=== PATIENT | female | born 1950 | race Caucasian/White ===

== ENCOUNTER 2017-07-24 08:33 | Emergency (ER) | payer BC ==
--- OUTSIDE RECORDS SUMMARY | 2017-07-24 08:39 | XMS REPORT ---
:1950 External Reference #:[id number] Author Organization [employer] Address [address] [address] Phone [phone] Care Team Providers Name Role Phone Marcela Ascencio MD Primary Care Physician Unavailable Payers Type Date Identification Numbers Payment Provider Subscriber Health Maintenance Policy Number: Medicare Blue Ppo Ciarra Braxton [facility] [place] ([facility]) [id number] Group Number: [id number] [address] [address] PayID: [id number] CAYLA Nagy 69995 Medigap Part B Effective: 10/09/2010 Policy Number: BS Facets Ciarra Braxton [id number] Expires: 07/10/2013 PayID: [id number] [address] [address] CAYLA Nagy [address] Health Maintenance Expires: Policy Number: Medicare Blue Ciarra Braxton [facility] [place] ([facility]) 07/10/2015 [id number] [facility] Group Number: [id number] [address] [address] PayID: [id number] CAYLA Nagy [address]345 Problems Date Description Provider Status Onset: 08/20/2015 Neck pain Lei Balderas M.D. 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 Use consumes 1-2 glasses of wine per day Smoking Patient is a former smoker Daily Caffeine Consumes on average 4 cups of regular coffee per day Exercise Type/Frequency Exercises regularly Allergies, Adverse Reactions, Alerts Date Description Reaction Status Severity Comments 12/10/2013 Sulfa Antibiotics active 08/20/2015 Terazol rash active 06/29/2017 Omeprazole active 06/29/2017 Pneumovax red arm, fever active 06/29/2017 Erythromycin gi upset active Medications Medication Date Status Form Strength Qnty SIG Indications Ordering Provider Naproxen 05/11/ Active Capsules 220mg 2 po qam 1 Other Sodium 2016 po q pm Ordering Provider Alpha-Lipoic / Active Capsules 200mg 2 caps daily Unknown Acid 0000 prn Zoloft /00/ Active Tablets 50mg 1 by mouth Unknown 0000 every day Prometrium /00/ Active Capsules 100mg 1 by mouth Unknown 0000 every day Valtrex /00/ Active Tablets 1gm 1 by mouth Unknown 0000 two times a day Lyrica / Active Capsules 25mg take one Unknown 0000 tablet/capsu le by mouth at bedtime. Wellbutrin 00/ Active Tablets ER 100mg 1 by mouth Unknown SR 0000 12HR every morning for 1 week, then 1 in in the morning, 1 at noon (bid) Denavir / Active Cream 1% apply three Unknown 0000 times daily as needed Vivelle-Dot / Active Patches 0.025mg/24 apply 1 Unknown 0000 Biweek HR patch twice weekly Prometrium 00/00/ Hx 100mg qhs Unknown - 2016 Lyrica /00/ Hx 50mg qd Unknown - 2016 Wellbutrin /00/ Hx 112mg bid Unknown XL - 2016 Zoloft /00/ Hx 50mg 1/2 tab bid Unknown - 2016 Vivelle /00/ Hx 0.375 every Unknown Patch - and Tuesday Valtrex /00/ Hx Tablets 1gm as needed Unknown - 2016 Clonazepam /00/ Hx Tablets 0.5mg prn for Unknown 0000 sleep Multi-Vitami / Hx Tablets 1 tab by Unknown n/Minerals 0000 - mouth every 06/27/ day as 2017 supplement Juvenon / Hx 1 tab prn Unknown 0000 - 2016 Immune / Hx Packet prn Unknown Support - 2016 Clonazepam / Hx Tablets 0.5mg 1 by mouth Unknown 0000 - as needed 07/08/ for sleep 2017 Tizanidine / Hx Capsules 2mg 1 or 2 cap Unknown HCL 0000 - by mouth as 07/08/ needed at 2017 night for spasms Tumersaid / Hx Tablets 1 by mouth Unknown 0000 - twice a week 2016 Ventolin HFA / Hx Aerosol 108(90Base 2 puffs by Unknown 0000 - ) mcg/Act mouth four 07/08/ times a day 2017 as needed Mometasone / Hx Suspension 50mcg/Act Unknown Furoate 0000 - 2016 Prednisone / Hx Tablets 10mg take 4 tabs Unknown 0000 - by mouth 07/08/ daily for 2 2017 days then 3 tabs daily for 2 days then 2 tabs for 2 days then 1 tab for 2 days then d/c Vital Signs Date Vital Result Comment 07/18/2017 Height 64 inches 5'4" Weight 145.00 lb Heart Rate 68 /min BP Systolic 99 mmHg BP Diastolic 66 mmHg Respiratory Rate 16 /min Body Temperature 98.4 F BMI (Body Mass Index) 24.9 kg/m2 07/08/2017 Height 64 inches 5'4" Weight 145.00 lb Heart Rate 65 /min BP Systolic Sitting 104 mmHg BP Diastolic Sitting 66 mmHg Pain Level 3 BMI (Body Mass Index) 24.9 kg/m2 01/17/2017 Height 64 inches 5'4" Weight 145.00 lb Heart Rate 74 /min BP Systolic 90 mmHg BP Diastolic 62 mmHg Respiratory Rate 16 /min Body Temperature 97.6 F BMI (Body Mass Index) 24.9 kg/m2 01/23/2016 Height 64 inches 5'4" Weight 145.00 lb Heart Rate 72 /min Respiratory Rate 16 /min Pain Level 8 BMI (Body Mass Index) 24.9 kg/m2 08/20/2015 Height 64 inches 5'4" Weight 140.00 lb Heart Rate 72 /min BP Systolic Sitting 112 mmHg BP Diastolic Sitting 68 mmHg Respiratory Rate 14 /min BMI (Body Mass Index) 24.0 kg/m2 12/10/2013 Height 64 inches 5'4" Weight 145.00 lb Heart Rate 72 /min BP Systolic 117 mmHg BP Diastolic 80 mmHg BMI (Body Mass Index) 24.9 kg/m2 Results Test Date Test Result H/L Range Note Laboratory test finding 11/19/2016 Cytology Non-Delivery Rep SEE RESULT BELOW 1 Laboratory test finding 11/13/2015 Cytology Non-Delivery Rep SEE RESULT BELOW 2 1 SEE RESULT BELOW Name: CIARRA BRAXTON : [address]: Marcela Ascencio MD Acct: [id number] Unit: [id number] AGE: 66 Location: Re11/19/16 SEX: F Status: REG REF SPEC: [id number] SHYANNE: 11/19/16-[address] [facility] [address]: Jerel Aguilera MD REQ: [id number] RECD: 11/19/16-7812 [facility]: Marcela Ascencio MD _ ORDERED: FNA-IMG GUID BX, CY ADEQ-ADDL P, LEVEL 4, CYTO ADEQ-1ST P FINAL DIAGNOSIS Abdominal wall, left anterior, Ultrasound guided, fine needle aspiration: -- Chronic inflammation, macrophages, degenerated adipose tissue and pigment debris present. -- No evidence of malignancy identified. Comment: Correlation with clinical and imaging findings is recommended. A cell block was prepared in the evaluation of this specimen. Smears and cell block reveal similar findings. 1. ABDOMINAL - US GUIDED LEFT ANTERIOR ABDONIMAL WALL FINE NEEDLE ASPIRATION CLINICAL HISTORY Left anterior abdominal wall mass. GROSS DESCRIPTION Ultrasound guided, fine needle aspiration x 4 passes with 6 Alcohol fixed slide(s), Needle rinse in CytoLyt solution for thin layer non-electric razor mechanic test(cloudy yellow), and needle rinse in formalin for cell block. Signed (signature on file) John Ambrosoi MD 1407 END OF REPORT * ML=Testing performed at Main Lab DEPARTMENT OF PATHOLOGY, [address] [place] [address] John Ambrosio M.D. Director [facility] # [id number] 2 SEE RESULT BELOW Name: CIARRA BRAXTON : [address]: Grant Mccabe MD Acct: [id number] Unit: [id number] AGE: 65 Location: THYROID Re11/13/15 SEX: F Status: REG REF SPEC: [id number] SHYANNE: 11/13/15-[address] [facility] [address]: Jerel Aguilera MD REQ: [id number] RECD: 11/13/15 STATUS: TIFF WEEMS DR: Grant Ascencio MD _ ORDERED: FN ASP DEEP, FNA Imme St Add, FNA IMMEDIATE S FINAL DIAGNOSIS Thyroid, right, Ultrasound guided, fine needle aspiration: Benign thyroid nodule- colloid/hyperplastic ([place] class II). The specimen demonstrates modest watery colloid, a modest amount of benign appearing follicular epithelium arranged in uniform sheets, medium sized follicles and only occasional small groups. No features of papillary carcinoma are seen. In this clinical setting the risk of malignancy is less than 3%. Clinical management of this thyroid nodule should be based on clinical and radiographic features as well as the above. THYROID RIGHT - RIGHT SUPERIOR US GUIDED FINE NEEDLE ASPIRATION CLINICAL HISTORY Right nodule, 1.6x 2.2x 1.4cm IMMEDIATE INTERPRETATION Pass 1-inadequate, pass 2-adequate. CONTINUED ON NEXT PAGE * ML=Testing performed at Main Lab DEPARTMENT OF PATHOLOGY, [address] [place] [address] John Ambrosio M.D. Director [facility] # [id number] RUN DATE: 11/13/15 [facility] LAB LIVE PAGE 2 Patient: CIARRA BRAXTON [id number] (Continued) GROSS DESCRIPTION (Continued) GROSS DESCRIPTION 4- alcohol fixed slide(s) 2 - passes Signed (signature on file) Angelita Verdin MD 11/23 1206 END OF REPORT * ML=Testing performed at Main Lab DEPARTMENT OF PATHOLOGY, [address] [place] [address] John Ambrosio M.D. Director [facility] # [id number] Procedures Date CPT Code Description Status 10/08/2015 53995 Diffusing Capacity Completed 10/08/2015 28513 Plethysmography Determination Lung Volumes & Per Completed Airway Resist 10/08/2015 59313 Pulmonary Function><Bronchodil Completed 12/10/2013 40550 Rad Exam; Foot Comp Completed Encounters Type Date Location Provider CPT E/M Dx Office Visit 01/17/2017 [facility] [place], [address] K43.9 11:15a Of Shawn FACS Office Visit 01/23/2016 [facility] Justin Reeves, 88834 M19.072 9:30a Of Tiesha Perez Office Visit 08/20/2015 [place] Rafael Balderas, 07517 M54.2 11:00a Services Of Shawn Perez M43.02 H93.12 Office Visit 12/10/2013 9:45a [facility] Of Gary Kruger M.D. 71086 727.3 CJoy 733.95 Office Visit 04/12/2011 2:00p [facility] Kruger M.D. 14662 716.96 C.Ethan 716.97 Plan of Care Future Appointment(s):08/31/2017 9:30 am - Ruthann Gordon NP at [facility]08/12/2017 9:30 am - Ruthann Gordon NP at [facility]08/23/2017 9:30 am - ROBBIE Marc at [facility]08/23/2017 9:30 am - Joni Neumann MD, FACS at [facility]09/07/2017 1:00 pm - Cynthia Haro MD at [facility]07/18/2017 - Joni Neumann MD, FACSK43.9 Ventral hernia without obstruction or gangreneRecommendations:Surgical repair.D48.1 Neoplasm of uncertain behavior of connctv/soft tissRecommendations:"Lipoma" to be removed at time of hernia repair.
--- OUTSIDE RECORDS SUMMARY | 2017-07-24 08:39 | XMS REPORT ---
:1950 External Reference #:[id number] Author Organization [employer] Address [address] [address] Phone [phone] Care Team Providers Name Role Phone Marcela Ascencio MD Primary Care Physician Unavailable Payers Type Date Identification Numbers Payment Provider Subscriber Health Maintenance Policy Number: Medicare Blue Ppo Ciarra Braxton [facility] ([facility]) [id number] Group Number: [id number] [address] [address] PayID: [id number] CAYLA Nagy [address] Medigap Part B Effective: 10/09/2010 Policy Number: BS Facets Ciarra Braxton [id number] Expires: 07/10/2013 PayID: [id number] [address] [address] CAYLA Nagy [address] Health Maintenance Expires: Policy Number: Medicare Blue Ciarra Braxton [facility] ([facility]) 07/10/2015 [id number] [facility] Group Number: [id number] [address] [address] PayID: [id number] CAYLA Nagy [address]30[address] Problems Date Description Provider Status Onset: 08/20/2015 [...] Date Description Comments 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 Wellbutrin /00/ Active Tablets ER 100mg 1 by mouth [...] every Unknown Patch - and Tuesday Valtrex 00/00/ Hx Tablets 1gm as needed Unknown - 2016 Clonazepam /00/ Hx Tablets 0.5mg prn for Unknown 0000 sleep Multi-Vitami 00/00/ Hx Tablets 1 tab by Unknown n/Minerals 0000 - mouth every 06/27/ day as 2017 supplement Juvenon / Hx 1 tab prn Unknown - 2016 Immune / Hx Packet prn Unknown Support - 2016 Clonazepam / Hx Tablets 0.5mg 1 by mouth Unknown 0000 - as needed 07/08/ for sleep 2016 Tizanidine / Hx Capsules 2mg 1 or 2 cap Unknown HCL 0000 - by mouth as 07/08/ needed at 2016 night for spasms Tumersaid / Hx Tablets 1 by mouth Unknown 0000 - twice a week 2016 Ventolin HFA / Hx Aerosol 108(90Base 2 puffs by Unknown 0000 - ) mcg/Act mouth four 07/08/ times a day 2017 as needed Mometasone / Hx Suspension 50mcg/Act Unknown Furoate - 2016 Prednisone / Hx Tablets 10mg take 4 tabs Unknown 0000 - by mouth 07/08/ daily for 2 2017 days then 3 tabs daily for 2 days then 2 tabs for 2 days then 1 tab for 2 days then d/c Vital Signs Date Vital Result Comment 07/08/2017 Height 64 inches 5'4" Weight 145.00 [...] Range Note Laboratory test finding 11/19/2016 Cytology Non-Electroencephalograph Technologist SEE RESULT BELOW 1 Laboratory test finding 11/13/2015 Cytology Non-Electroencephalograph Technologist SEE RESULT BELOW 2 1 SEE RESULT BELOW Name: CIARRA BRAXTON : [address]: Marcela Ascencio MD Acct: [id number] Unit: [id number] AGE: 66 Location: Re11/19/16 SEX: F Status: REG REF SPEC: [id number] SHYANNE: 11/19/16-[address] [facility] [address]: Jerel Aguilera MD REQ: [id number] RECD: 11/19/16-4577 STATUS: TIFF WEEMS DR: Marcela Ascencio MD _ ORDERED: [...] rinse in CytoLyt solution for thin layer non-clam picker test(cloudy yellow), and needle rinse in formalin for cell block. Signed (signature on file) John Ambrosio MD 1401 END OF REPORT * ML=Testing performed at Main Lab DEPARTMENT OF PATHOLOGY, [address] [place] [address] John Ambrosio M.D. Director [facility] # [id number] 2 SEE RESULT BELOW Name: CIARRA BRAXTON : [address]: Grant Mccabe MD Acct: [id number] Unit: [id number] AGE: 65 Location: THYROID Re11/13/15 SEX: F Status: REG REF SPEC: [id number] SHYANNE: 11/13/15-[address] [facility] [address]: Jerel Aguilera MD REQ: [id number] RECD: 11/13/15 STATUS: TIFF WEEMS DR: Grant Ascencio MD _ ORDERED: FN ASP DEEP, FNA Imme St Add, FNA IMMEDIATE S FINAL DIAGNOSIS Thyroid, right, Ultrasound guided, fine needle aspiration: Benign thyroid nodule- colloid/hyperplastic ([place] class II). The specimen demonstrates modest watery [...] performed at Main Lab DEPARTMENT OF PATHOLOGY, [address] [place] [address] John Ambrosio M.D. Director [facility] # [id number] RUN DATE: 11/13/15 [facility] LAB LIVE PAGE 2 Patient: CIARRA BRAXTON [id number] (Continued) GROSS DESCRIPTION (Continued) GROSS DESCRIPTION 4- alcohol fixed slide(s) 2 - passes Signed (signature on file) Angelita Verdin MD 11/23 1206 END OF REPORT * ML=Testing performed at Main Lab DEPARTMENT OF PATHOLOGY, [address] [place] [address] John Ambrosio M.D. Director [facility] # [id number] Procedures Date CPT Code Description Status 10/08/2015 66675 Diffusing Capacity Completed 10/08/2015 65859 Plethysmography Determination Lung Volumes & Per Completed Airway Resist 10/08/2015 35163 Pulmonary Function><Bronchodil Completed 12/10/2013 39415 Rad Exam; Foot Comp Completed Encounters Type Date Location Provider CPT E/M Dx Office Visit 07/08/2017 [facility] Cynthia 44450 M47.26 11:00a Of Shawn Haro MD M51.26 M43.16 Office Visit 01/17/2017 11:15a [facility] [place], [address] K43.9 Of [facility] FACS Office Visit 01/23/2016 9:30a [facility] Justin Reeves, [address] M19.072 Of Tiesha Perez Office Visit 08/20/2015 11:00a [facility] Lei Balderas, [address] M54.2 Services Of Shawn Perez M43.02 H93.12 Office Visit 12/10/2013 9:45a [facility] Of Gary Kruger M.D. 68569 727.3 C.M.A. 733.95 Office Visit 04/12/2011 2:00p [facility] Kruger M.D. 72317 716.96 C.M.A. 716.97 Plan of Care Future Appointment(s):09/07/2017 1:00 pm - Cynthia Haro MD at [facility]07/08/2017 - Cynthia Haro, MDM47.26 Other spondylosis with radiculopathy, lumbar regionNew Xrays:SP Lumbar Ap//Lat 2-3 ViewsSpine Entire Ap/LatNew Orders:EMG w/Nerve Conduct Study, ThqohK94.26 Other intervertebral disc displacement, lumbar xqcctmL66.16 Spondylolisthesis, lumbar regionFollow up:2 months
[2017-07-24 08:46] VITALS: BP 144/74
[2017-07-24] MEDS ORDERED: Fluorescein Sodium TOPICAL* 1 MG TEST ONE (08:58)
[2017-07-24] MEDS ORDERED: BSS OPTH.SOL* BTL ONE (08:59)
[2017-07-24] MEDS ORDERED: Tetracaine 0.5% OPTH.SOL 4 ML* 1 DROP BTL ONE (08:59)
[2017-07-24] MEDS ORDERED: Tetracaine 0.5% OPTH.SOL 4 ML* 1 DROP BTL BOTH EYES SCH (09:00)
--- NOTE | 2017-07-24 09:07 | UC ---
Eye Complaint HPI - HPI Summary HPI Summary: Patient presents after she accidentally put alcohol in her left eye this morning , she immediately flushed the eye and not presents for evaluation as her left eye she states it continues to sting. She denies any significant change in her vision. She is a patient of Dr. Lassiter. - History of Current Complaint Chief Complaint: UCEye Stated Complaint: EYE COMPLAINT Time Seen by Provider: 07/24/17 08:49 Hx Obtained From: Patient ?: No Onset/Duration: Sudden Onset Timing: Minutes Severity Initially: Mild Severity Currently: Mild Location of Injury: Conjunctiva Aggravating Factor(s): Light, Blinking Alleviating Factor(s): Other - flushed at home with eye saline. Associated Signs And Symptoms: Positive: Negative - Risk Factors Penetrating Injury Risk Factor: Negative Globe Rupture Risk Factors: Negative Acute Glaucoma Risk Factors: Negative Optic Artery Occlusion Risk Factors: Negative - Allergies/Home Medications Allergies/Adverse Reactions: Allergies Allergy/AdvReac Type Severity Reaction Status Date / Time Terconazole [From Terazol] Allergy Severe GENERALIZED Verified 07/24/17 08:37 ALLERGIC REACTION Sulfa Drugs Allergy Unknown Unknown Verified 07/24/17 08:37 Reaction Details PMH/Surg Hx/FS Hx/Imm Hx Previously Healthy: Yes Psychological History: Depression - Surgical History Surgical History: Yes Surgery Procedure, Year, and Place: D&C;. LEFT KNEE SURGERY meniscus;. FX FOOT right titanium screw; - Family History Known Family History: Positive: None - Social History Occupation: Retired Lives: Alone Alcohol Use: None Alcohol Amount: 1-2 glasses of wine/day Substance Use Type: None Smoking Status (MU): Former Smoker Have You Smoked in the Last Year: No When Did the Patient Quit Smoking/Using Tobacco: 1975 Review of Systems Constitutional: Negative Skin: Negative Eyes: Other - alcohol to left eye, stinging at present time. ENT: Negative Respiratory: Negative Cardiovascular: Negative Gastrointestinal: Negative Genitourinary: Negative Motor: Negative Neurovascular: Negative Musculoskeletal: Negative Neurological: Negative Psychological: Negative Is Patient Immunocompromised?: No All Other Systems Reviewed And Are Negative: Yes Physical Exam Triage Information Reviewed: Yes Appearance: Well-Appearing Vital Signs: Initial Vital Signs Temp 98.4 F 07/24/17 08:35 Pulse 93 07/24/17 08:35 Resp 18 07/24/17 08:35 BP 144/74 07/24/17 08:35 Pulse Ox 99 07/24/17 08:35 Vital Signs Reviewed: Yes Eye Exam: Normal ENT Exam: Normal Dental Exam: Normal Neck exam: Normal Neck: Positive: 1 Respiratory Exam: Normal Cardiovascular Exam: Normal Abdominal Exam: Normal Musculoskeletal Exam: Normal Neurological Exam: Normal Psychological Exam: Normal Skin Exam: Normal Eye Complaint Course/Dx - Course Course Of Treatment: Patient presents following accidental instillation of alcohol to the left eye, she irrigated it at home and presents for further evaluation. The eye was stainged and checked with ku lamp, there was a mild corneal chemical abrasion, with no obvious ulceration. She was RX gentimycin opth ointment and told to follow up with Dr. Man tomorrow and told to go to the ER if her symtpoms get worse, at the time of my exam the patient was no in extremous, with no reported visual change, based on the fact that she could not put in her contacts due to the exposure, I did not feel she needed an emergent opthamolgy consult and she agreed. She was discharged home in stable condition and told to see Dr. Man in the morning. She verbalized understanding of and was in agreement with the discharge plan. - Differential Dx/Diagnosis Differential Diagnosis/HQI/PQRI: Corneal Abrasion Provider Diagnoses: corneal chemical abrasion Discharge - Discharge Plan Condition: Stable Disposition: HOME Prescriptions: Erythromycin OPTH OINT* [Erythromycin 0.5% OPTH OINT*] 1 applic LEFT EYE TID #1 ophth.oint Patient Education Materials: Corneal Abrasion (ED) Referrals: Marcela Ascencio MD [Primary Care Provider] - Additional Instructions: Patient was told to follow up with Dr. Man tomorrow. If her symptoms get worse to go directly to the emergency deparment.
[2017-07-24] MEDS ORDERED: Gentamicin 0.3% OPTH.OINT* 3.5 GM TUBE LEFT EYE SCH (09:30)
== END 2017-07-24 09:11 | disposition home or self-care (01) ==
LOC: UCEAST 08:33
DX: T15.02XA Foreign body in cornea, left eye, initial encounter (principal); X58.XXXA Exposure to other specified factors, initial encounter; Y93.9 Activity, unspecified; Y92.9 Unspecified place or not applicable; Z87.891 Personal history of nicotine dependence
CPT/HCPCS: 99212; A9270-GY; G0463

== ENCOUNTER 2017-08-23 07:27 | Day surgery (SDC) | payer BC ==
--- NOTE | 2017-08-15 03:47 | HP ---
CC: Dr. Marcela Ascencio * PREOPERATIVE HISTORY AND PHYSICAL: DATE OF ADMISSION: This patient is scheduled for same-day surgery on 08/23/17. DATE OF PREOPERATIVE HISTORY AND PHYSICAL EXAMINATION: 08/12/17. ATTENDING SURGEON: Dr. Joni Neumann * (dictated by Ruthann Foley NP) CHIEF COMPLAINT: Abdominal wall lipoma and epigastric hernia. HISTORY OF PRESENT ILLNESS: The patient is a 67-year-old female referred to Dr. Neumann by Dr. Marcela Ascencio for evaluation of abdominal wall lipoma and epigastric hernia. The lipoma has been growing over the past year; she was sent for ultrasound, which showed a complex solid and cystic mass, she had an ultrasound- guided FNA biopsy that showed chronic inflammatory cells and was negative for malignancy. She also underwent MRI that demonstrated a midline ventral hernia in the region of the lipoma with associated herniation of peritoneal fat and a vein passing through the hernia defect. At this time, she wishes to proceed with open repair of epigastric hernia and excision of abdominal wall mass as a same-day surgery procedure. Dr. Neumann has discussed the nature of the surgical procedure, the rationale for the procedure, the relevant risks and benefits, and today I have reviewed the typical postoperative care and recovery. The patient has had a chance to ask questions and stated that she understands the information and is satisfied with the answers given to her questions. She will sign surgical consent on the day of surgery. PAST MEDICAL HISTORY: Degenerative joint disease of the lumbar spine, depression, and acid reflux. PAST SURGICAL HISTORY: Left knee arthroscopy; right foot titanium screw placement. MEDICATIONS: 1. Zoloft 50 mg p.o. daily. 2. Prometrium 100 mg p.o. daily. 3. Valtrex 1 g p.o. b.i.d. 4. Lyrica 25 mg 1 tablet at bedtime. 5. Wellbutrin SR 100 mg b.i.d. 6. Denavir 1% apply t.i.d. as needed. 7. Vivelle-Dot 0.025 mg per 24 hours, apply 1 patch twice weekly. 8. Alpha lipoic acid 200 mg 2 capsules daily. 9. L-carnitine supplement daily. 10. Naproxen 220 mg 1 tablet every evening. ALLERGIES: SULFA ANTIBIOTIC, unspecified reaction; TERAZOL caused difficulty swallowing; PRILOSEC blocked absorption of antidepressants; PNEUMOVAX caused redness and fever; ERYTHROMYCIN, GI upset. FAMILY HISTORY: Mother with history of breast cancer. Father with history of heart disease and hypertension. SOCIAL HISTORY: She is ; she is a nonsmoker. She drinks 2 glasses of wine every evening. She denies the use of other substances and she exercises routinely. She will have friends that will stay with her postoperatively. REVIEW OF SYSTEMS: Constitutional: No fevers, chills, excessive fatigue, or weight loss. Endocrine: No diabetes or thyroid disease. Hematologic: No easy bruising or bleeding. Respiratory: No dyspnea on exertion. No chronic cough. Cardiovascular: No anginal chest pain or palpitations. Gastrointestinal : No nausea, vomiting, diarrhea, or constipation. Genitourinary: No dysuria. Musculoskeletal: Chronic back and left hip pain followed by Dr. Velazquez; she recently had epidural injection of cortisone with good effect. She had a normal EMG of both lower extremities. Neurologic: Alert and oriented x3. Steady gait. General: No history of deep vein thrombosis or pulmonary embolism. With previous anesthesia, she reports with general anesthesia, she felt like she was in a "fog" for a lengthy period of time afterwards. PHYSICAL EXAMINATION GENERAL SURVEY: The patient is a 67-year-old female, well developed, well nourished, in no acute distress. VITAL SIGNS: Height 64 inches, weight 145 pounds, body mass index 24.9. Blood pressure 118/80, pulse 78 and regular, respiratory rate 16, temperature 98.3 tympanic. HEENT: Benign. NECK: Supple. No cervical lymphadenopathy. LUNGS: Breath sounds bilaterally clear and equal. HEART: Regular rate and rhythm. No murmurs or rubs appreciated. ABDOMEN: Active bowel sounds, nondistended, soft, and nontender. There is swelling of the epigastrium with left-sided predominance, there is a palpable soft subcutaneous mass, which is well circumscribed and no palpable hernia defect. PELVIC: Exam done within the past year, not repeated. RECTAL: Exam done within the past year, not repeated. EXTREMITIES: Warm without edema or skin ulceration. NEUROLOGIC: Alert and oriented x3. Steady gait. SKIN: Warm, dry, intact. IMPRESSION: 1. Ventral hernia. 2. Abdominal wall mass. PLAN: Same-day surgery admission to Dr. Neumann' service on /13/18, for open repair of epigastric hernia and excision of abdominal wall mass. JOSI FOLEY, OUTBOARD MOTOR MECH[employer]IC [id number]/[facility] #: [id number] [facility]OSPITALJackson
[~2017-08-23 07:27] MED LIST: Buffered Lidocaine 0.9% SYRIN* 5 ML/SYR SYRINGE INTRADERM ONE
[2017-08-23] MEDS ORDERED: Buffered Lidocaine 0.9% SYRIN* 5 ML/SYR SYRINGE ONE (07:46)
[2017-08-23] MEDS ORDERED: ceFAZolin 1 GM in Dextrose (*) 2 GM/100 ML BAG IVPB ONE (07:46)
[2017-08-23] MEDS ORDERED: Bupivacaine 0.25% SDV* 30 ML ONE (08:36)
[2017-08-23] MEDS ORDERED: fentaNYL* 50 MCG/ML 2 ML VIAL (100 MCG VIAL) ONE ×2 (08:48→09:08)
[2017-08-23] MEDS ORDERED: Propofol* 10 MG/ML 20 ML BTL IV PUSH ONE (08:48)
[2017-08-23] MEDS ORDERED: Bupivacaine 0.5% SDV PF* 10-30ML VIAL ONE (08:51)
[2017-08-23] MEDS ORDERED: Lidocaine 1% MPF wEPI 200,000* 30 ML SDV ONE (08:51)
[2017-08-23] MEDS ORDERED: Ketorolac INJ* 30 MG/ML 1 ML VIAL ONE (09:07)
[2017-08-23] MEDS ORDERED: Dexamethasone IV* 4 MG/ML 1 ML (4 MG) ONE (09:07)
[2017-08-23] MEDS ORDERED: oxyCODONE/Acetamin 5/325 MG* TAB PO PRN ×2 (09:32→09:59)
[2017-08-23] MEDS ORDERED: Naloxone* 0.4 MG/ML 1 ML VIAL IV PRN (09:32)
[2017-08-23] MEDS ORDERED: HYDROcodone/ACETAMIN 5-325 MG* 1 TAB PO PRN (09:32)
[2017-08-23] MEDS ORDERED: Ondansetron INJ* 2 MG/ML VIAL IV PRN (09:32)
[2017-08-23] MEDS ORDERED: fentaNYL* 50 MCG/ML 2 ML VIAL (100 MCG VIAL) IV PRN (09:32)
[2017-08-23] MEDS ORDERED: Ondansetron INJ* 2 MG/ML VIAL ONE (09:41)
[2017-08-23 11:09] VITALS: BP 128/63
--- NOTE | 2017-08-24 19:25 | OP ---
CC: Marcela Ascencio MD * DATE OF OPERATION: 08/23/17 - [facility] DATE OF : 46 SURGEON: Joni Neumann MD LEAD CASE MANAGER: None. ANESTHESIOLOGIST: Dr. Velazquez. ANESTHESIA: Local MAC. PRE-OP DIAGNOSES: Epigastric hernia and abdominal wall mass. POST-OP DIAGNOSES: Epigastric hernia with incarcerated omentum. OPERATIVE PROCEDURE: Open repair of epigastric hernia and resection of omentum. ESTIMATED BLOOD LOSS: Minimal. IV FLUIDS: Crystalloids. SPECIMENS: Contents of hernia. DRAINS: None. COMPLICATIONS: None. COUNTS: Instrument, needle, and sponge counts were correct. DESCRIPTION OF PROCEDURE: The patient was brought to the operating room and placed on the table supine. Sequential compression devices were placed on both lower extremities. The abdomen was prepped and draped in the usual sterile fashion. Time-out was performed. The patient was provided field block with local anesthetic. A midline incision was created and the subcutaneous tissues were divided. A mass of omentum containing clear serous fluid was identified with subcutaneous tissues and this appeared to be herniated through a small defect in the epigastrium, which measured about 1.5 cm. This mass was dissected out and appeared to be omentum containing fluid. The mass was entered, clear fluid was drained and then this area appeared to be a tongue of omentum, so it was serially clamped and divided and then ligated with 2-0 Vicryl ties of suture ligature. The specimen was submitted to Pathology. The defect was then cleaned back to clean fascia and it was closed with interrupted 0 Ethibond sutures using 2 [id number] sutures to close the defect. The subcutaneous tissues were then closed with 3- 0 Vicryl to decrease the space. 4-0 Monocryl was used to close the skin in a running subcuticular fashion. The wound was dressed with Steri-Strips and gauze. The patient tolerated the procedure well and was transferred to recovery stable. [id number]/[facility] #: [id number] [facility]ENTERJackson
== END 2017-08-23 11:09 | disposition home or self-care (01) ==
LOC: OR 07:27
PROVIDERS: ATTEND Surgery
DX: K43.9 Ventral hernia without obstruction or gangrene (principal); M51.36 Other intervertebral disc degeneration, lumbar region; M50.90 Cervical disc disorder, unspecified, unspecified cervical region; F32.9 Major depressive disorder, single episode, unspecified
CPT/HCPCS: 88302; J0690; J1100; J1885; J2001; J2405; J2704; J3010

== ENCOUNTER 2018-03-15 19:29 | Emergency (ER) | payer BC ==
[2018-03-15 19:46] VITALS: BP 132/70
--- NOTE | 2018-03-15 20:14 | ED ---
Throat Pain/Nasal Congestion - HPI Summary HPI Summary: 67-year-old female presents with sore throat for the past day. She is to swallow liquids. She's been eating as normal. She admits to fevers. No cough or no shortness breath. No difficulty swallowing. No sinus congestion. No else is sick. No abdominal pain no nausea or vomiting. did not take anything for her fever. Does not have diabetes or high blood pressure or cardiac issues. - History of Current Complaint Chief Complaint: UCRespiratory Time Seen by Provider: 03/15/18 20:03 - Allergies/Home Medications Allergies/Adverse Reactions: Allergies Allergy/AdvReac Type Severity Reaction Status Date / Time terconazole [From Terazol 3] Allergy Severe Difficulty Verified 03/15/18 19:46 Swallowing omeprazole [From Prilosec] Allergy BLOCKED Verified 03/15/18 19:46 ABSORPTION OF ANTIDEPRESSANTS pneumococcal vaccine Allergy REDNESS Verified 03/15/18 19:46 [From Pneumovax 23] AND FEVER Sulfa (Sulfonamide Allergy Unknown Verified 03/15/18 19:46 Antibiotics) Reaction Details ERYTHROMYCIN Allergy GI Upset Uncoded 03/15/18 19:46 PMH/Surg Hx/FS Hx/Imm Hx Endocrine/Hematology History: Denies: Hx Diabetes, Hx Thyroid Disease, Hx Anemia Cardiovascular History: Reports: Other Cardiovascular Problems/Disorders - STATES BP- TENDS TO RUN 90/60 Denies: Hx Hypertension, Hx Pacemaker/ICD Respiratory History: Denies: Hx Asthma, Hx Chronic Obstructive Pulmonary Disease (COPD) GI History: Denies: Hx Jaundice, Hx Ulcer History: Denies: Hx Renal Disease Musculoskeletal History: Reports: Hx Arthritis - SPINE, KNEE, Hx Back Problems - spinal stenosis, bulging discs, Hx Tendonitis - LEFT HIP, Other Musculoskeletal History - DDD LUMBAR SPINE//PINCHED NERVE IN NECK AND LOWER SPINE PER PATIENT Sensory History: Reports: Hx Contacts or Glasses - CONTACTS- INSTRUCTS GIVEN Denies: Hx Hearing Aid Opthamlomology History: Reports: Hx Contacts or Glasses - CONTACTS- INSTRUCTS GIVEN Neurological History: Reports: Hx Migraine - HX OF IN THE PAST Psychiatric History: Reports: Hx Anxiety, Hx Depression Denies: Hx Panic Disorder - Cancer History Hx Chemotherapy: No Hx Radiation Therapy: No - Surgical History Surgery Procedure, Year, and Place: D&C;. LEFT KNEE SURGERY meniscus;. FX FOOT right titanium screw; Hx Anesthesia Reactions: Yes - "FOGGY HEAD X 6 WEEKS AFTER KNEE SURGERY" Infectious Disease History: No Infectious Disease History: Denies: Hx Hepatitis, Hx Human Immunodeficiency Virus (HIV), History Other Infectious Disease, Traveled Outside the [place] in Last 30 Days - Family History Known Family History: Positive: None - Social History Alcohol Use: Occasionally Alcohol Amount: 2 glasses wine/day Substance Use Type: Reports: Prescribed Hx Tobacco Use: No Smoking Status (MU): Former Smoker Amount Used/How Often: 1 PPD X 5 YEARS Have You Smoked in the Last Year: No Review of Systems Positive: Fever Positive: Sore Throat Negative: Chest Pain Negative: Shortness Of Breath All Other Systems Reviewed And Are Negative: Yes Physical Exam Triage Information Reviewed: Yes Vital Signs On Initial Exam: Initial Vitals Temp Pulse Resp BP Pulse Ox 98.5 F 89 12 132/70 99 03/15/18 19:43 03/15/18 19:43 03/15/18 19:43 03/15/18 19:43 03/15/18 19:43 Vital Signs Reviewed: Yes Appearance: Positive: Well-Appearing Skin: Positive: Warm, Dry Head/Face: Positive: Normal Head/Face Inspection Eyes: Positive: Normal, Conjunctiva Clear ENT: Positive: Normal ENT inspection, Pharyngeal erythema, TMs normal, Muffled voice, Uvula midline, Other - soft palate symmetric. Negative: Tonsillar swelling, Tonsillar exudate, Trismus Neck: Positive: Supple, Nontender, No Lymphadenopathy Respiratory/Lung Sounds: Positive: Clear to Auscultation, Breath Sounds Present Cardiovascular: Positive: Normal, RRR Abdomen Description: Positive: Nontender, Soft Bowel Sounds: Positive: Present Musculoskeletal: Positive: Normal Neurological: Positive: Normal Psychiatric: Positive: Normal Diagnostics - Vital Signs Vital Signs Temp Pulse Resp BP Pulse Ox 03/15/18 19:43 98.5 F 89 12 132/70 99 - Laboratory Lab Statement: Any lab studies that have been ordered have been reviewed, and results considered in the medical decision making process. EENT Course/Dx - Course Course Of Treatment: 67-year-old female presents with sore throat for the past day. She is to swallow liquids. She's been eating as normal. She admits to fevers. No cough or no shortness breath. No difficulty swallowing. No sinus congestion. No else is sick. No abdominal pain no nausea or vomiting. did not take anything for her fever. Does not have diabetes or high blood pressure or cardiac issues. On examining has erythematous pharynx. Uvula midline. Soft palate symmetric. Strep negative. We'll treat as viral supportively. patient will follow up with primary as blood pressure is elevated at this visit in pre- htn range. Patient understands agrees plan. - Differential Diagnoses Differential Diagnoses: Pharyngitis, Sinusitis, Uveitis - Diagnoses Provider Diagnoses: Pharyngitis Discharge - Sign-Out/Discharge Documenting (check all that apply): Patient Departure All imaging exams completed and their final reports reviewed: No Studies - Discharge Plan Condition: Good Disposition: HOME Patient Education Materials: Pharyngitis (ED) Referrals: Marcela Ascencio MD [Primary Care Provider] - Additional Instructions: Take Tylenol for pain every 6 hours Can gargle salt water Can use cough drops or products such as cloraseptic spray follow up with primary as needed Return to ED if develop fever does not respond to Tylenol or ibuprofen, inability to swallow, or any new or worsening symptoms - Billing Disposition and Condition Condition: GOOD Disposition: Home
== END 2018-03-15 20:31 | disposition home or self-care (01) ==
LOC: UCEAST 19:29
DX: J02.9 Acute pharyngitis, unspecified (principal); Z88.1 Allergy status to other antibiotic agents; Z88.2 Allergy status to sulfonamides; Z88.7 Allergy status to serum and vaccine; Z88.8 Allergy status to other drugs, medicaments and biological substances; Z87.891 Personal history of nicotine dependence
CPT/HCPCS: 87651; 99211; G0463

== ENCOUNTER 2018-11-26 11:21 | Emergency (ER) | payer BC ==
--- OUTSIDE RECORDS SUMMARY | 2018-11-26 11:25 | XMS REPORT | Continuity of Care Document ---
:1950 External Reference #:[id number] Author Name Lelia Keita Care Team Providers Name Role Phone Marcela Ascencio M.D. Primary Care Physician Unavailable Payers Date Identification Numbers Payment Provider Subscriber Policy Number: [id number] [facility] [employer] Number: [id number] [address] [address] PayID: [id number] CAYLA Porter [id number] Advance Directives Description No Information Available Problems Active Problems Provider Date Arthritis Onset: Mild depression Onset: Compression injury of nerve Onset: Combined form of senile cataract Kathy Ribeiro O.D. Onset: 09/19/2015 Vitreous degeneration Kathy Ribeiro O.D. Onset: 09/19/2015 Conjunctivitis Kathy Ribeiro O.D. Onset: 07/25/2017 Conjunctival cyst Yessi Yuan O.D. Onset: 11/07/2018 Family History Date Family Member(s) Observation Comments Father No Current Problems Mother Breast Cancer Mother Leukemia Social History Type Date Description Comments Sex Unknown Marital Status Legal Status: Occupation Author Work Status Full-Time Employment ETOH Use Consumes 1 glass of wine per day Tobacco Use Start: Unknown End: Patient is a former smoker Unknown Recreational Drug Use Denies Drug Use Smoking Status Reviewed: 11/07/18 Patient is a former smoker Allergies, Adverse Reactions, Alerts Active Allergies Reaction Severity Comments Date Sulfa Antibiotics 06/18/2015 Terazol 06/18/2015 Medications Active Medications SIG Qnty Indications Ordering Date Provider FML Forte 1 drop right eye 3 15ml H11.441 Yessi Yuan, 11/07/2018 0.25% times a day for 1 O.D. Suspension week, then discontinue Clonazepam Marcela Ascencio 0.5mg M.D. Tablets Vivelle-Dot Unknown 0.025mg/24HR Patches Biweek Zoloft Marcela Ascencio 50mg Tablets M.D. Valacyclovir HCL Ascencio, Marcela 1gm M.D. Tablets Progesterone Unknown Micronized 100mg Capsules Lyrica take 1-2 capsules by Unknown 25mg Capsules mouth once daily Wellbutrin Marcela Ascencio 75mg Tablets M.D. Erythromycin every day Unknown 2% Gel Multiple Vitamins Unknown Tablets History Medications Tizanidine HCL Marcela Ascencio M.DMando - 11/17/2017 2mg Tablets Immunizations Description No Information Available Vital Signs Description No Information Available Results Description No Information Available Procedures Date Code Description Status 11/18/2017 59973 Determination Of Refractive State Completed 11/18/2017 09967 Est Patient Comprehensive Exam Completed 07/25/2017 41723 Est Patient Intermediate Exam Completed 09/19/2015 30472 Est Patient Comprehensive Exam Completed 04/15/2014 65867 Est Patient Comprehensive Exam Completed 04/15/2014 101 Level 1 SCL Fit/Refit Completed 01/01/2013 41835 Est Patient Comprehensive Exam Completed 01/01/2013 201 Refit - No Change In Fit Completed 11/23/2012 54946 Est Patient Intermediate Exam Completed 07/12/2011 04953 Est Patient Comprehensive Exam Completed 07/12/2011 201 Refit - No Change In Fit Completed 04/22/2010 73377 Est Patient Comprehensive Exam Completed 04/22/2010 202 Refit SCL Completed 06/01/2005 34329 New Patient Comprehensive Exam Completed Encounters Type Date Location Provider Dx Diagnosis Office Visit 11/07/2018 Viktor Francois, Yessi Yuan, H11.441 Conjunctival cysts, 10:15a , [facility] right eye Plan of Treatment Future Appointment(s):11/29/2018 3:00 pm - Yessi Yuan O.D. at Viktor Francois MD, 11/07/2018 - Yessi Yuan O.D.H11.441 Conjunctival cysts, right eyeNew Medication:FML Forte 0.25 % - 1 drop right eye 3 times a day for 1 week, then discontinueComments:Smoking can increase the risk of developing or worsening any eye related disease, as well as affect your overall health. If you are a smoker, we strongly recommend that you quit.If you are not a smoker, we strongly recommend that you do not start. start artificial tears 1 drop every 2 hours in the right eyestart FML drops 3 times in the right eye for a week, then discontinue. Do not wear your contact lenses while using the steroid dropif your symptoms persist, please call the office to be seenFollow up:as scheduled
[2018-11-26 11:36] VITALS: BP 123/70
== END 2018-11-26 11:55 | disposition left against medical advice (07) ==
LOC: UCEAST 11:21
DX: T14.8XXA Other injury of unspecified body region, initial encounter (principal); W57.XXXA Bitten or stung by nonvenomous insect and other nonvenomous arthropods, initial encounter; Y92.9 Unspecified place or not applicable; Z53.21 Procedure and treatment not carried out due to patient leaving prior to being seen by health care provider